=== PATIENT | male | born 2000 | race Caucasian/White ===

== ENCOUNTER 2020-03-07 11:18 | Emergency (ER) | payer OTHER ==
[2020-03-07] MEDS ORDERED: KETOROLAC TROMETHAMINE INJ/PF 30 MG/1 ML SDV IV ONE (12:09)
[2020-03-07] MEDS ORDERED: ONDANSETRON HCL INJ/PF 4 MG/2 ML SDV IV ONE (12:09)
[2020-03-07] MEDS ORDERED: NORMAL SALINE 1000 ML 1,000 ML IV ONE (12:09)
--- NOTE | 2020-03-07 12:25 | ER Document Report ---
ED GI/ - General Stated Complaint: FEVER,VOMITING Time Seen by Provider: 03/07/20 11:53 Primary Care Provider: ELSA FELIPE MD [COMMUNITY BASED STAFF] - Follow up as needed Gillian PORTILLO MD [ACTIVE STAFF] - Follow up as needed Notes: CHIEF COMPLAINT: Headache nausea vomiting fever abdominal pain HPI: 19-year-old male with history of appendectomy presenting for frontal headache, congestion, nausea vomiting diarrhea with a subjective fever at home. Reports mild lower abdominal discomfort. Symptoms have been ongoing for 3 days. States that he throws up anytime he tries to ingest oral fluids over the last 24 hours ROS: See HPI - all other systems were reviewed and are otherwise negative Constitutional: Positive subjective fever Eyes: no drainage, no blurred vision ENT: Positive runny nose, no sore throat Cardiovascular: no chest pain Resp: no SOB, no cough GI: Positive vomiting, positive diarrhea, positive abdominal pain : no dysuria Integumentary: no rash Allergy: no hives Musculoskeletal: no extremity pain or swelling Neurological: no numbness/tingling, no weakness MEDICATIONS: I agree with the patient medications as charted by the RN. ALLERGIES: I agree with the allergies as charted by the RN. PAST MEDICAL HISTORY/PAST SURGICAL HISTORY: Reviewed and agree as charted by RN. SOCIAL HISTORY: Reviewed and agree as charted by RN. FAMILY HISTORY: No significant familial comorbid conditions directly related to patient complaint EXAM: Reviewed vital signs as charted by RN. CONSTITUTIONAL: Alert and oriented and responds appropriately to questions. Well-appearing; well-nourished HEAD: Normocephalic; atraumatic EYES: PERRL; Conjunctivae clear, sclerae non-icteric ENT: normal nose; positive clear rhinorrhea; moist mucous membranes; pharynx without lesions noted, no uvula edema or deviation, no tonsillar hypertrophy, phonation normal NECK: Supple without meningismus; non-tender; no cervical lymphadenopathy, no masses CARD: RRR; no murmurs, no clicks, no rubs, no gallops; symmetric distal pulses RESP: Normal chest excursion without splinting or tachypnea; breath sounds clear and equal bilaterally; no wheezes, no rhonchi, no rales, pulse oximetry 99% on room air not hypoxic ABD/GI: Normal bowel sounds; non-distended; soft, mild tenderness right lower quadrant on palpation, no rebound, no guarding; no palpable organomegaly or masses. BACK: The back appears normal and is non-tender to palpation, there is no CVA tenderness EXT: Normal ROM in all joints; non-tender to palpation; no cyanosis, no effusions, no edema SKIN: Normal color for age and race; warm; dry; good turgor; no acute lesions noted NEURO: Moves all extremities equally; Motor and sensory function intact PSYCH: The patient's mood and manner are appropriate. Grooming and personal hygiene are appropriate. MDM: 19-year-old male presenting for flulike symptoms over the last 24 hours. - Related Data Allergies/Adverse Reactions: Penicillins Allergy (Verified 03/07/20 12:20) Past Medical History - Social History Smoking Status: Unknown if Ever Smoked Family History: Reviewed & Not Pertinent Physical Exam - Vital signs Vitals: Temp Pulse Resp BP Pulse Ox 99.5 F 108 H 20 127/105 H 97 03/07/20 11:25 03/07/20 11:03/07/20 11:03/07/20 11:25 03/07/20 11:25 Course - Re-evaluation Re-evalutation: 03/07/20 13:40 Patient was noted to have creatinine of 1.97, BUN of 26, hemoglobin of 17.5. Likely dehydration issue, will aggressively rehydrate 03/07/20 15:15 Patient was noted to have acute kidney injury likely from dehydration. Has been aggressively hydrated, CT imaging suggests cecitis. COVID test is pending. Will p.o. challenge patient plan to treat the inflammatory changes noted with Cipro and Flagyl 03/07/20 15:37 Patient was aggressively hydrated here with 3 L of fluids, states he does feel better. Strict return precautions were discussed 03/07/20 16:[address] Santizo, attending. We will proceed with prior plan for discharge - Vital Signs Vital signs: Temp Pulse Resp BP Pulse Ox 99.5 F 108 H 20 127/105 H 97 03/07/20 11:25 03/07/20 11:25 03/07/20 11:25 03/07/20 11:25 03/07/20 11:25 - Laboratory Result Diagrams: 03/07/20 12:23 09/16/20 12:23 Laboratory results interpreted by me: 03/07/20 03/07/20 03/07/20 12:23 12:23 12:23 WBC 14.2 H RBC 5.73 H Hgb 17.5 H Lymph % (Auto) 5.7 L Absolute Neuts (auto) 12.4 H Seg Neutrophils % 87.2 H Sodium 135.7 L BUN 26 H Creatinine 1.97 H Est GFR ( Amer) 52 L Est GFR (MDRD) Non-Af 43 L Glucose 133 H Total Bilirubin 1.5 H Urine Protein 30 H Urine Blood LARGE H Discharge - Discharge Clinical Impression: Acute cecitis, ROMELIA (acute kidney injury), Person under investigation for COVID- 19 Vomiting Qualifiers: Vomiting type: unspecified Vomiting Intractability: non-intractable Nausea presence: with nausea Qualified Code(s): R11.2 - Nausea with vomiting, unspecified Condition: Stable Disposition: HOME, SELF-CARE Instructions: COVID-19 Guidance for Persons Under Investigation Additional Instructions: Take Zofran for recurrent nausea vomiting. Hydrate well at home. Take the Cipro and Flagyl as prescribed. Follow-up with gastroenterology as well as with nephrology. It was noted that you had a mild kidney injury today from dehydration. Make sure that this gets followed up and rechecked to ensure that your kidney function returns to normal. If you have worsening fever worsening pain or are unable to keep fluids down please return for reevaluation. You are considered a person under investigation for COVID-19 at this time self quarantine at home pending test results which usually take 2 to 5 days and you should hear from someone at the hospital about your test results Prescriptions: Ondansetron [Zofran Odt 4 mg Tablet] 1 - 2 tab PO Q4HP PRN #10 tab.rapdis PRN Reason: Ciprofloxacin HCl [Cipro 500 mg Tablet] 500 mg PO BID #20 tablet Metronidazole [Flagyl 500 mg Tablet] 500 mg PO BID #20 tablet Referrals: ELSA FELIPE MD [COMMUNITY BASED STAFF] - Follow up as needed Gillian PORTILLO MD [ACTIVE STAFF] - Follow up as needed
[2020-03-07 13:04] LABS: ABSOLUTE LYMPHOCYTES (AUTO) 0.8 10^3/uL (0.5-4.7); ABSOLUTE NEUT (AUTO) 12.4 10^3/uL (1.7-8.2); BASOPHILS % (AUTO) 0.1 % (0-2); HEMATOCRIT 50.1 % (37.9-51.0); HEMOGLOBIN 17.5 g/dL (13.5-17.0); LYMPHOCYTES % (AUTO) 5.7 % (13-45); MEAN CORPUSCULAR HEMOGLOBIN 30.5 pg (27.0-33.4); MEAN CORPUSCULAR HGB CONC 34.9 g/dL (32.0-36.0); MEAN CORPUSCULAR VOLUME 88 fl (80-97); PLATELET COUNT 222 10^3/uL (150-450); RED BLOOD COUNT 5.73 10^6/uL (4.35-5.55); RED CELL DISTRIBUTION WIDTH 13.1 % (11.5-14.0); SEGMENTED NEUTROPHILS % (AUTO) 87.2 % (42-78); TOTAL CELLS COUNTED % (AUTO) 100 %; WHITE BLOOD COUNT 14.2 10^3/uL (4.0-10.5)
[2020-03-07 13:15] LABS: APPEARANCE,URINE SLIGHTLY-CLOUDY; BILIRUBIN,URINE NEGATIVE (NEGATIVE); COLOR,URINE AMBER; GLUCOSE, URINE NEGATIVE (NEGATIVE); KETONES,URINE NEGATIVE (NEGATIVE); LEUKOCYTE ESTERASE,URINE NEGATIVE (NEGATIVE); NITRITE,URINE NEGATIVE (NEGATIVE); PROTEIN,URINE 30 mg/dL (NEGATIVE); URINE SPECIFIC GRAVITY 1.026; UROBILINOGEN,URINE NEGATIVE mg/dL (<2.0)
[2020-03-07 13:15] LABS: A TYPE INFLUENZA AG NEGATIVE (NEGATIVE); B INFLUENZA AG NEGATIVE (NEGATIVE)
[2020-03-07 13:21] LABS: ALBUMIN 4.7 g/dL (3.5-5.0); ALKALINE PHOSPHATASE 60 U/L (38-126); ANION GAP 14 (5-19); ASPARTATE AMINO TRANSFERASE 30 U/L (17-59); BILIRUBIN,DIRECT 0.3 mg/dL (0.0-0.4); BILIRUBIN,TOTAL 1.5 mg/dL (0.2-1.3); BLOOD UREA NITROGEN 26 mg/dL (7-20); CALCIUM 9.7 mg/dL (8.4-10.2); CARBON DIOXIDE 24 mmol/L (22-30); CHLORIDE 98 mmol/L (98-107); GLUCOSE 133 mg/dL (75-110); POTASSIUM 4.1 mmol/L (3.6-5.0); TOTAL PROTEIN 7.9 g/dL (6.3-8.2)
[2020-03-07] MEDS ORDERED: NORMAL SALINE 1000 ML 1,000 ML IV PRN (13:40)
--- NOTE | 2020-03-07 14:53 | RADIOLOGY REPORT (SQ) ---
EXAM DESCRIPTION: CT ABD/PELVIS WITH IV ONLY IMAGES COMPLETED DATE/TIME: 03/07/2020 2:33 pm REASON FOR STUDY: lower abd pain fever COMPARISON: None. TECHNIQUE: CT scan of the abdomen and pelvis performed using helical scanning technique with dynamic intravenous contrast injection. No oral contrast. Images reviewed with lung, soft tissue, and bone windows. Reconstructed coronal and sagittal MPR images reviewed. Delayed images for evaluation of the urinary system also acquired. All images stored on PACS. All CT scanners at this facility use dose modulation, iterative reconstruction, and/or weight based d osing when appropriate to reduce radiation dose to as low as reasonably achievable (ALARA). [facility]: Dose Right [facility]: CareDose [facility]: Dose Right [facility]: Teradose 4D [facility]: Senseonics CONTRAST TYPE AND DOSE: contrast/concentration: Isovue 300.00 mmol/ml; Total Contrast Delivered: 100 .0 ml; Total Saline Delivered: 67.0 ml RENAL FUNCTION: BUN 26; creatinine 1.97 RADIATION DOSE: CT Rad equipment meets quality standard of care and radiation dose reduction techniq ues were employed. CTDIvol: 6.8 - 9.6 mGy. DLP: 944 mGy-cm.. LIMITATIONS: None. FINDINGS: LOWER CHEST: No significant findings. No nodules or infiltrates. LIVER: Normal size. No masses. No dilated ducts. SPLEEN: Normal size. No focal lesions. PANCREAS: No masses. No significant calcifications. No adjacent inflammation or peripancreatic fluid collections. Pancreatic duct not dilated. GALLBLADDER: No identified stones by CT criteria. No inflammatory changes to suggest cholecystitis. ADRENAL GLANDS: No significant masses or asymmetry. RIGHT KIDNEY AND URETER: No solid masses. No significant calcifications. No hydronephrosis or hyd roureter. LEFT KIDNEY AND URETER: No solid masses. No significant calcifications. No hydronephrosis or hydr oureter. AORTA AND VESSELS: No aneurysm. No dissection. Renal arteries, SMA, celiac without stenosis. RETROPERITONEUM: No retroperitoneal adenopathy, hemorrhage or masses. BOWEL AND PERITONEAL CAVITY: Mild pericecal fat stranding and right lower quadrant lymphadenopathy ar e demonstrated. No bowel obstruction. No mass. APPENDIX: Surgically absent. PELVIS: No mass. No free fluid. Normal bladder. ABDOMINAL WALL: No masses. No hernias. BONES: No significant or acute findings. OTHER: No other significant finding. IMPRESSION: Status post appendectomy. Right lower quadrant mesenteric fat stranding and reactive ly mph nodes suggests a developing cecitis. TECHNICAL DOCUMENTATION: JOB ID: [id number] Quality ID # [id number]: Final reports with documentation of one or more dose reduction techniques (e.g., Au tomated exposure control, adjustment of the mA and/or kV according to patient size, use of iterative reconstruction technique) 2010 [employer]- All Rights Reserved Reading location - IP/workstation name: [email or web address]
[2020-03-07] MEDS ORDERED: CIPROFLOXACIN HCL 500 MG TABLET PO ONE (16:18)
[2020-03-07] MEDS ORDERED: METRONIDAZOLE 500 MG TABLET PO ONE (16:18)
[2020-03-07 16:34] VITALS: BP 127/81
== END 2020-03-07 16:36 | disposition home or self-care (01) ==
LOC: ER 11:18
DX: K52.9 Noninfective gastroenteritis and colitis, unspecified (principal); N17.9 Acute kidney failure, unspecified; R11.2 Nausea with vomiting, unspecified; R51 Headache; R10.813 Right lower quadrant abdominal tenderness; Z88.0 Allergy status to penicillin; Z20.828 Contact with and (suspected) exposure to other viral communicable diseases
CPT/HCPCS: 99285; 96361; 96374; 96375; 36415; 83690; 85025; 87635; 80053; 81001; 87804; 74177; J1885; J2405; J7030; C9803